=== PATIENT | female | born 1975 | race Caucasian/White ===

== ENCOUNTER 2016-06-18 11:41 | Emergency (ER) | payer MEDICAID, OTHER ==
[~2016-06-18] VITALS: Wt 72.9 kg
[~2016-06-18 11:41] MED LIST: DICY10CA60 PO; HYDR-3498 PO; IBUP-1542 PO; ONDA4TAB35 PO
[2016-06-18] MEDS ORDERED: IBUP-1542 PO (13:18)
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
[2016-06-18 13:48] VITALS: BP 127/66; PULSE 69; RESP 19; TEMP 98.4
== END 2016-06-18 13:58 | disposition home or self-care (01) ==
LOC: FTE 11:41
DX: S09.93XA Unspecified injury of face, initial encounter (principal); J45.909 Unspecified asthma, uncomplicated; F17.210 Nicotine dependence, cigarettes, uncomplicated; V89.2XXA Person injured in unspecified motor-vehicle accident, traffic, initial encounter; Y92.9 Unspecified place or not applicable
CPT/HCPCS: 99283